=== PATIENT | male | born 1950 | race Caucasian/White ===

== ENCOUNTER 2017-05-18 11:25 | Emergency (ER) | payer MEDICARE, OTHER ==
[~2017-05-18] VITALS: Ht 170.2 cm; Wt 70.5 kg
[~2017-05-18 11:25] MED LIST: ALBU8.5H4 INHALATION; AZIT250T4 PO
[2017-05-18 11:29] VITALS: BP 170/77; PULSE 75; RESP 14; O2SAT 100
--- NOTE | 2017-05-18 11:35 | ED.REPORT ---
HPI-Extremity Problem Upper Date of Service May 18, 2017 ED Provider: Kylah Petit History of Present Illness: right shoulder pain for months. pain has been increasing over time. used naprosyn. some help. no specific injury. 04/15 right hand dominant [facility] Pain is in the joint Nursing Notes Stated Complaint: RT SHOULDER PROBLEM Chief Complaint: Extremity Trauma Nursing Notes Reviewed: Yes Allergies: Coded Allergies: No Known Allergies (Verified Allergy, Unknown, 08/10/15) Scheduled Azithromycin (Zithromax (Z-Neal)) 250 Mg Tablet 250 MG PO DAILY Take 2 tablets by mouth on the first day, then take 1 tablet by mouth daily on days 2,3, and 4. Scheduled PRN Albuterol HFA (Albuterol HFA) 8.5 Gm Hfa.aer.ad 1 PUFF INHALATION Q4H PRN PRN For Wheezing As needed for cough and/or wheezing. General Time Seen by MD: 11:33 Chief Complaint Shoulder injury right Hx Obtained From: Patient Onset Occurred: More than a week ago... (>6 months) Symptom Duration: Since onset Past Medical History Past Medical History Denies: Asthma, Diabetes mellitus Past Surgical History Denies Family History No famhx of pulmonary or cardiovascular disease Smoking History Current Every Day Smoker (quit again for the last month has 40 year hx of smoking), Former Smoker Social History Alcohol Use: 1-3 per day Drug Use: Denies drug use Other Social History: Local resident Occupation lives by self, no work or school Ambulatory Status Independent Review of Systems Basic Review of Systems Eyes: Vision NL, No discharge : No dysuria, No frequency Psychiatric: Normal thought content Physical Exam Initial Vital Signs Vital Signs (First) Date Time Temp Pulse Resp B/P Pulse Ox O2 Delivery O2 Flow Rate FiO2 05/18/17 11:29 36.6 75 14 170/77 100 Room Air Initial VS: Reviewed, Vital signs abnormal General/Constitutional: Well-developed, Well-nourished Head / Eyes: Atraumatic, Normocephalic, PERRL ENT: Mucous membranes moist, Conjunctiva normal, No scleral icterus Neck: Supple, Non-tender, Full range of motion Respiratory: Breath sounds normal, Clear to auscultation, No respiratory distress Cardiovascular: Regular rate & rhythm, Heart sounds normal, Intact distal pulses Abdomen / GI: Soft, Non-tender, No guarding, No rebound, No distention Back: No CVA tenderness Lymphatic: No lymphadenopathy Lower Extremities: Vascular intact, Neuro intact, No swelling, No tenderness Skin: Warm, Dry, No cyanosis Neurologic: Alert, Oriented, Nonfocal Psychiatric: Mood/affect normal, Behavior normal, Normal thought content General/Constitutional: Awake, Alert, No acute distress, Well appearing, Well developed, Well hydrated Respiratory / Chest: Atraumatic, Breath sounds NL, Breath sounds = bilat, No respiratory distress, No rales, No rhonchi, No wheezing Cardiovascular: Heart rate NL, Regular rhythm, Heart sounds NL, No gallop Upper Extremity / MS: Atraumatic, Inspection NL, Full range of motion, No swelling, Non-tender, No snuffbox tenderness excellent range of motion, no weakness or atrophy noted Interpretation & Diagnostics X-Ray Interpretation Xray Interpretation: DICATIONS: pain TECHNIQUE: 3 views of the shoulder were acquired. COMPARISON: None. FINDINGS: Bones: No fractures or dislocations. No suspicious bony lesions. Visualized ribs appear intact. Right acromioclavicular joint degenerative change. Soft tissues: No suspicious soft tissue calcifications. IMPRESSION: No acute fractures or dislocations. Normal right shoulder alignment. Re-Eval/Medical Decision Med Decision/Clinical Course 67 year old male presents to the ER for evualation of ongoing pain for 4 to 6 months. Denies injury or trauma. REports pain is in the joint. Excellent range of motion, unable to place right hand behind back. regional engineer strength equal. No atrophy or muscle weakness noted. No sign of deep vein clot or compartment syndrome. Discharge & Departure Impression: Primary Impression: Shoulder pain, right Chronicity: chronic Qualified Code: M25.511 - Pain in right shoulder Disposition: Home Patient Instructions: Exercises for Internal and External Shoulder Rotation (ED ), Exercises for Shoulder Abduction and Adduction (ED), Exercises for Shoulder Flexion and Extension (ED), Shoulder Arthroplasty (ED), Shoulder Bursitis (ED), Shoulder Pain (ED) Additional Instructions: The x-ray does not show any sign of arthritis. It is so important to continue with movement. Start prednisone 40 mg daily for 5 days then 30 mg daily for 5 days the 20 mg daily for 5 days the 10 mg daily for 5 days. Take omeprazole daily while taking prednisone. Please call Dr. Farr for follow up. Your blood pressure is up. Please continue to monitor and follow with primary care. Referrals: Lennox Farr MD EDSupervising Provider for [facility]: Rick Meng DO copies to: Lennox Farr MD, Sue ARNP May 18, 2017 11:35
--- NOTE | 2017-05-18 12:18 | DRSVH ---
PROCEDURE: X-RAY RIGHT SHOULDER, MINIMUM TWO VIEWS ([id number]) INDICATIONS: pain TECHNIQUE: 3 views of the shoulder were acquired. COMPARISON: None. FINDINGS: Bones: No fractures or dislocations. No suspicious bony lesions. Visualized ribs appear intact. R ight acromioclavicular joint degenerative change. Soft tissues: No suspicious soft tissue calcifications. IMPRESSION: No acute fractures or dislocations. Normal right shoulder alignment. Dictated by: Vijay Lowe M.D. on 05/18/2017 at 12:15 Approved by: Vijay Lowe M.D. on 05/18/2017 at 12:16
[2017-05-18 13:08] VITALS: BP 130/86; PULSE 76; RESP 16; O2SAT 98
== END 2017-05-18 13:06 | disposition home or self-care (01) ==
LOC: SED 11:25
DX: M25.511 Pain in right shoulder (principal); F17.200 Nicotine dependence, unspecified, uncomplicated
CPT/HCPCS: 73030; 96372; 99284; J1885